=== PATIENT | male | born 1940 | race Caucasian/White ===

== ENCOUNTER 2021-02-28 12:16 | Day surgery (SDC) | payer MEDICARE, OTHER, SELFPAY ==
[2021-02-23 13:53] VITALS: BMI 25.1
[2021-02-28] MEDS: Lactated Ringers 1,000 ML 50 ML IV (12:40)
[2021-02-28 12:41] VITALS: BP 165/75; PULSE 83; RESP 16; TEMP 36.2; O2SAT 97
--- NOTE | 2021-02-28 12:45 | HO.ANESPROP2 ---
PENDING SALE TO [facility] Past Medical History Medical History BPH (benign prostatic hyperplasia) Elevated cholesterol Elevated glucose Hypertension Surgical History Surgical History Hx of colonoscopy Social History Social History Advance Directives: No Advance Directives Information Provided: No Advance Directives on File: No Recently lost weight without trying: No Meds Allergies Allergy/AdvReac Type Severity Reaction Status Date / Time No Known Allergies Allergy Verified 02/23/21 13:48 Home Medications Medication Instructions Recorded Confirmed Last Taken Type amlodipine 1 tab PO DAILY 02/23/21 02/23/21 Unknown History ascorbic acid (vitamin C) [Vitamin 500 mg PO DAILY 02/23/21 02/23/21 Unknown History C] atorvastatin 1 tab PO DAILY 02/23/21 02/23/21 Unknown History carvedilol 1 tab PO BID 02/23/21 02/28/21 02/28/21 History cholecalciferol (vitamin D3) 50 mcg PO DAILY 02/23/21 02/23/21 Unknown History [Vitamin D3] coenzyme Q10 [CoQ-10] 100 mg PO DAILY 02/23/21 02/23/21 Unknown History lutein 20 mg PO DAILY 02/23/21 02/23/21 Unknown History zghoxfexqkxh-alfiebnx-uuphwc 1 tab PO DAILY 02/23/21 02/23/21 Unknown History [Centrum Silver] omega 6-aau-isy-fish oil [Fish Oil] 1 cap PO DAILY 02/23/21 02/28/21 02/21/21 History tamsulosin 1 cap PO DAILY 02/23/21 02/23/21 Unknown History Exam Exam Date and Time: February 28, 2021 1245 Height,Weight and Vital Signs: Height 5 ft 11 in Weight 81.647 kg Last Vital Signs Temp 97.1 F 02/28/21 12:41 Pulse 83 02/28/21 12:41 Resp 16 02/28/21 12:41 BP 165/75 H 02/28/21 12:41 Pulse Ox 97 02/28/21 12:41 Airway Mallampati Class: II TM Dist: >3cm Neck ROM: Full Loose/Missing/Broken Teeth: No Heart: RRR Lungs: CTA Assessment and Plan Assessment Anesthesia Assessment: Anesthesia Plan Discussed and Chart Reviewed Final Anesthetic Review NPO: Yes ASA Class: II Final Preanesthetic Review: Meds/Allgs Chart Reviewed, Consent Obtained/Reviewed and Anes Risks/Benef Reviewed Patient Risk: Low Procedure Risk: Low Anesthetic Plan Anesthetic Plan: MAC: Disposition: Standard PACU
--- NOTE | 2021-02-28 13:03 | P.HPSUR_ITS ---
Pre-Procedural Eval Section B Chief Complaint: hx of colonic polyps,screening Details of Present Illness: see H&P no changes Relevant Family History (Specify if Yes): No Relevant Social History: None Present Medications: see Short Stay Collaborative assessment Medical History: Significant History (see H&P) Allergies: Allergies Allergy/AdvReac Type Severity Reaction Status Date / Time No Known Allergies Allergy Verified 02/23/21 13:48 Review of Systems Sugical H&P ROS: Negative: Constitution, Cardiovascular, Respiratory, Neurological, Psychiatric, Hem-Onc, Allergic/Immunologic, Gastrointestinal, Genitourinary, Musculoskeletal, Integumentary, Endocrine and Eyes/Ears/Nose/Thr oat Exam Surgical H&P Exam: Normal: HEENT, Normal: Heart, Normal: Lungs, Normal: Extremities, Normal: Abdomen, Normal: Skin and Normal: Neurological Plan Diagnosis/Plan: Unchanged I have reviewed the history and physical and performed a pertinent physical examination on my patient. No changes have occurred unless specified.
--- NOTE | 2021-02-28 13:47 | PM.OP ---
Brief Operative Note Date of Service: 02/28/21 Pre-op diagnosis: screening Post-op diagnosis: same Procedure: colonoscopy Surgeon: Chris Diehl Anesthesia: MAC Estimated blood loss (mL): 0 Pathology: other (polyps x2) Condition: stable Disposition: PACU
[2021-02-28 13:49] VITALS: BP 119/65; PULSE 71; RESP 18; TEMP 36.6; O2SAT 96
[2021-02-28 14:04] VITALS: BP 126/73; PULSE 60; RESP 18; TEMP 36.6; O2SAT 95
--- NOTE | 2021-02-28 15:07 | OP_ITS ---
SURGEON: Chris Diehl MD INDICATIONS: Colon cancer screening. PREOPERATIVE DIAGNOSIS: POSTOPERATIVE DIAGNOSIS: PROCEDURE PERFORMED: Colonoscopy to the terminal ileum with snare polypectomy. ESTIMATED BLOOD LOSS: COMPLICATIONS: ANESTHESIA: ASSISTANTS: SPECIMENS: MEDICATIONS: Monitored anesthesia care. DESCRIPTION OF PROCEDURE: History and physical performed. The risks and benefits of the procedure were explained to the patient. Informed consent was obtained. The patient was placed in left lateral decubitus position. A digital rectal exam was performed and was found to be normal. The Olympus pediatric video colonoscope was introduced into the rectum and advanced to the cecum without difficulty. The cecum was identified by transillumination, palpation, and identification of ileocecal valve. Examination was performed and the scope was removed. He tolerated the procedure well and was returned to recovery area in stable condition. FINDINGS: The terminal ileum was normal. The visualized colonic mucosa was normal. There was some liquid stool left limiting examination. This was washed and suctioned. Four polyps were identified and removed with a snare. They were located at 80 cm, 70 cm, 20 cm and in the rectum. The largest at 20 cm measured approximately 8 mm, the polyps at 80 cm and in the rectum could not be recovered for technical reasons. Retroflexed examination was normal. There was moderate diverticulosis of the sigmoid. IMPRESSION: Colon polyps. RECOMMENDATION: Follow up the biopsy results. MD LAMBERT Rodriguez/SHERRIE / [id number]
== END 2021-02-28 14:30 | disposition home or self-care (01) ==
PROVIDERS: PCP Internal Medicine; Visit Provider Internal Medicine Gastroenterology
PROC: 0DJD8ZZ Inspection of Lower Intestinal Tract, Via Natural or Artificial Opening Endoscopic (ICD-10-PCS; CPT 45378; principal; 2021-02-28 13:00)
DX: Z12.11 Encounter for screening for malignant neoplasm of colon (principal); Z86.010 Personal history of colon polyps; Z83.71 Family history of colonic polyps; D12.4 Benign neoplasm of descending colon; D12.5 Benign neoplasm of sigmoid colon; K57.30 Diverticulosis of large intestine without perforation or abscess without bleeding; I10 Essential (primary) hypertension; R73.09 Other abnormal glucose; N40.0 Benign prostatic hyperplasia without lower urinary tract symptoms; Z79.899 Other long term (current) drug therapy; Z87.891 Personal history of nicotine dependence
CPT/HCPCS: 45385; 88305